=== PATIENT | female | born 1965 | race Caucasian/White ===

== ENCOUNTER 2018-05-01 18:07 | Emergency (ER) | payer SELFPAY ==
[~2018-05-01] VITALS: Ht 162.6 cm; Wt 73.0 kg
[~2018-05-01 18:07] MED LIST: HYDR-3927 PO; LEVO500T2 PO; OMEP2SUS; TAM75 PO; TRAM7.5P2
[2018-05-01] MEDS ORDERED: KETOROLAC 60MG/2ML VIAL IM ONE (19:15)
[2018-05-01] MEDS ORDERED: DEXAMETHASONE 4MG TABLET PO ONE (19:15)
[2018-05-01 20:54] LABS: CLARITY URINE CLEAR (CLEAR); COLOR URINE YELLOW (YELLOW); KETONES URINE NEGATIVE (NEGATIVE); LEUKOCYTE ESTERASE URINE NEGATIVE (NEGATIVE); NITRITE URINE NEGATIVE (NEGATIVE); OCCULT BLOOD URINE 2+ (NEGATIVE); PROTEIN URINE NEGATIVE (NEGATIVE); UROBILINOGEN URINE 0.2 E.U./dL (0.2-1.0)
[2018-05-01 22:24] VITALS: BP 159/98
== END 2018-05-01 22:34 | disposition home or self-care (01) ==
LOC: ER 18:07
DX: J02.9 Acute pharyngitis, unspecified (principal); R05 Cough; M79.10 Myalgia, unspecified site; Z98.890 Other specified postprocedural states; Z87.442 Personal history of urinary calculi
CPT/HCPCS: 81003; 81025; 87804; 96372; 99283; J1885; J8540